=== PATIENT | male | born 1950 | race American Indian/Alaskan Native ===

== ENCOUNTER 2018-02-01 15:40 | Inpatient (IN) | payer MEDICARE ==
[2018-02-02 15:42] VITALS: BMI 27.5
[2018-02-02 16:21] VITALS: RESP 20
[2018-02-02] MEDS: Insulin Lispro (humaLOG) 100 Units/ml Inj SC SCH ×2 (17:33→23:00)
[2018-02-02] MEDS: GlipiZIDE 10 mg SR Tab PO SCH (17:34)
--- NOTE | 2018-02-02 17:34 | CP.PCM.HP ---
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 At time of arrival to the ED the patient was out of the timeframe for tPA. Initial CT of the head was negative and the patient could not undergo an MRI due to his cardiac device incompatibility. A repeat CT of of the head the following day showed an acute left basal ganglia infarct and insular cortex. A TTE with agitated saline was performed that showed no ASD, thrombus and no change in the patient's baseline cardiac status. The patient has right sided sensory and motor deficits and right facial sensory deficit that are residual from the CVA. He was discharged to [facility] Acute rehabilitation today for further therapy and monitoring. Currently the patient denies any new problems and feels well. He denies chest pain, sob, lethargy, n/v/d, fever, chills, recent illness. He is eager to begin rehabilitation. Primary care physician: Jannette King MD Present on Admission - Present on Admission Any Indicators Present on Admission: No Review of Systems - Review of Systems Review of Systems: A 12 point review of systems was conducted and found to be negative other than what was mentioned in the HPI. Past Patient History - Infectious Disease Hx of Infectious Diseases: None - Past Medical History & Family History Past Medical History?: Yes - Past Social History Smoking Status: Never Smoked - CARDIAC Hx Cardiac Disorders: Yes Hx Cardia Arrhythmia: Yes Hx Congestive Heart Failure: Yes Hx Hypertension: Yes Other/Comment: Defibrilator 2013 - PULMONARY Hx Respiratory Disorders: No - NEUROLOGICAL HX Cerebrovascular Accident: Yes - HEENT Hx HEENT Problems: No - RENAL Hx Chronic Kidney Disease: No - ENDOCRINE/METABOLIC Hx Diabetes Mellitus Type 2: Yes - HEMATOLOGICAL/ONCOLOGICAL Hx Blood Transfusions: No - INTEGUMENTARY Hx Dermatological Problems: No - MUSCULOSKELETAL/RHEUMATOLOGICAL Hx Falls: No - GASTROINTESTINAL Hx Gastrointestinal Disorders: Yes Hx Constipation: Yes Hx Hemorrhoids: Yes - GENITOURINARY/GYNECOLOGICAL Hx Genitourinary Disorders: No - PSYCHIATRIC Hx Psychophysiologic Disorder: No Hx Substance Use: No - SURGICAL HISTORY Hx Surgeries: Yes Other/Comment: S/p sigmoid resection 2003, S/p defibrilator 2012 - ANESTHESIA Hx Anesthesia: Yes Hx Anesthesia Reactions: No Hx Malignant Hyperthermia: No Meds Allergies/Adverse Reactions: Allergies Allergy/AdvReac Type Severity Reaction Status Date / Time No Known Allergies Allergy Verified 02/02/18 14:19 Physical Exam - Additional Findings Additional findings: Physical exam: Constitutional- cooperative, awake, alert Head- NCAT, PERRL Eye- PERRL, EOMI ENT- normal exam, MMM. Neck- normal inspection, supple, no JVD Respiratory- CTAB, no wheezes rales rhonchi Cardiovascular- RRR, +S1, +S2 no MRG GI/Abdominal- normal bowel sounds, soft, no mass, no hsm Skin- warm, dry Extremities Exam- normal capillary refill, normal inspection Neurological Exam- Right UE 4/5 muscle strength, Right LE 4/5 muscle strength, Left side upper and lower 5/5 strength. Right hand greep weakened. Speech mildly dysarthric. Patient is alert, awake, oriented Psych- normal mood, normal affect Results - Vital Signs Recent Vital Signs: Last Vital Signs Temp Pulse 78 02/02/18 16:05 Resp 20 02/02/18 16:05 BP Pulse Ox 98 02/02/18 16:05 Assessment & Plan - Assessment and Plan (Free Text) Plan: This is a 67 year old male with pmh of Type II DM, essential hypertension, hyperlipidemia, CAD s/p stent, combined systolic and diastolic CHF with an ejection craction of 26&, arrhythmia s/p AICD placement, cardiomyopathy, history of diverticulitis s/p sigmoidal resection, admitted to [place] acute rehab s/p left basal ganglia CVA with right sided sensory and motor deficits 1) Left basal ganglia CVA - Continue Aspirin for 21 more days - Continue Plavix 75 mg po daily - statin - Begin physical, occupational, and speech therapies at rehab - Physiatry consultation with Dr. Chairez - Neurology consultation with Dr. 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 3) Type II DM - Humalog sliding scale with accuchek - Levemir 10 mg SC q 12 hours - HGA1C 8.4 4) Essential hypertension - Carvedilol 3.125 mg po q 12 hours - Lisinopril 5 mg po daily - HCTZ 25 mg po daily 5) Dyslipidemia Lipitor 40 mg po HS Triglycerides 143 Cholesterol 166 LDL 88 HDL 48 6) DVT prophylaxis - Lovenox 40 mg sc daily
[2018-02-02] MEDS: Insulin Detemir 100 Units/ml Inj SC SCH (21:43)
[2018-02-03 06:39] LABS: HEMOGLOBIN 13.4 g/dL (12.0-18.0); MEAN CELL VOLUME 87.1 fl (80.0-94.0); MEAN CORPUSCULAR HEMOGLOBIN 28.3 pg (27.0-31.0); MEAN CORPUSCULAR HGB CONC 32.5 g/dL (33.0-37.0); RBC 4.72 Mil/uL (4.40-5.90); RED CELL DISTRIBUTION WIDTH 12.8 % (11.5-14.5); WHITE BLOOD COUNT 7.2 K/uL (4.8-10.8)
[2018-02-03 06:53] LABS: BLOOD UREA NITROGEN 24 mg/dl (9-20); CALCIUM 9.8 mg/dL (8.4-10.2); GFR AFRICAN-AMERICAN > 60; GFR NON-AFRICAN AMERICAN > 60
[2018-02-03] MEDS: Insulin Lispro (humaLOG) 100 Units/ml Inj SC SCH ×4 (06:53→23:30)
[2018-02-03] MEDS: GlipiZIDE 10 mg SR Tab PO SCH ×2 (08:20→17:16)
[2018-02-03] MEDS: Enoxaparin 40 mg Syringe SC SCH (08:20)
[2018-02-03] MEDS: Pantoprazole 40 mg EC Tab PO SCH (08:21)
[2018-02-03] MEDS: Insulin Detemir 100 Units/ml Inj SC SCH ×2 (08:21→21:30)
--- NOTE | 2018-02-03 09:26 | CP.PCM.CON ---
History of Present Illness - History of Present Illness History of Present Illness: MR. Jaimes is a 67 y/o male with pmh of Type II DM, essential hypertension, hyperlipidemia, CAD s/p stent, combined systolic and diastolic CHF with an ejection craction of 26&, arrhythmia s/p AICD placement, cardiomyopathy, history of diverticulitis s/p sigmoidal resection, who presented initially to [facility] with acute onset right sided numbness and word finding difficulties. At time of arrival to the ED the patient was out of the timeframe for tPA. Initial CT of the head was negative and the patient could not undergo an MRI due to his cardiac device incompatibility. A repeat CT of of the head the following day showed an acute left basal ganglia infarct and insular cortex. A TTE with agitated saline was performed that showed no ASD, thrombus and no change in the patient's baseline cardiac status. The patient has right sided sensory and motor deficits and right facial sensory deficit that are residual from the CVA. He was discharged to [facility] Acute rehabilitation today for further therapy and monitoring. Currently the patient denies any new problems and feels well. He denies chest pain, sob, lethargy, nausea, vomiting, dizziness, . He is excited to start therapy. Review of Systems - Review of Systems All systems: reviewed and no additional remarkable complaints except Past Patient History - Infectious Disease Hx of Infectious Diseases: None - Past Medical History & Family History Past Medical History?: Yes - Past Social History Smoking Status: Never Smoked - CARDIAC Hx Cardiac Disorders: Yes Hx Cardia Arrhythmia: Yes Hx Congestive Heart Failure: Yes Hx Hypertension: Yes Other/Comment: Defibrilator 2012 - PULMONARY Hx Respiratory Disorders: No - NEUROLOGICAL HX Cerebrovascular Accident: Yes - HEENT Hx HEENT Problems: No - RENAL Hx Chronic Kidney Disease: No - ENDOCRINE/METABOLIC Hx Diabetes Mellitus Type 2: Yes - HEMATOLOGICAL/ONCOLOGICAL Hx Blood Transfusions: No - INTEGUMENTARY Hx Dermatological Problems: No - MUSCULOSKELETAL/RHEUMATOLOGICAL Hx Falls: No - GASTROINTESTINAL Hx Gastrointestinal Disorders: Yes Hx Constipation: Yes Hx Hemorrhoids: Yes - GENITOURINARY/GYNECOLOGICAL Hx Genitourinary Disorders: No - PSYCHIATRIC Hx Psychophysiologic Disorder: No Hx Substance Use: No - SURGICAL HISTORY Hx Surgeries: Yes Other/Comment: S/p sigmoid resection 2003, S/p defibrilator 2012 - ANESTHESIA Hx Anesthesia: Yes Hx Anesthesia Reactions: No Hx Malignant Hyperthermia: No Meds Allergies/Adverse Reactions: Allergies Allergy/AdvReac Type Severity Reaction Status Date / Time No Known Allergies Allergy Verified 02/02/18 14:19 - Medications Medications: Current Medications Aspirin (Aspirin Chewable) 81 mg PO DAILY [facility] Last Admin: 02/03/18 08:19 Dose: 81 mg Atorvastatin Calcium (Lipitor) 40 mg PO HS [facility] Last Admin: 02/02/18 21:42 Dose: 40 mg Carvedilol (Coreg) 3.125 mg PO Q12 [facility] Last Admin: 02/03/18 08:19 Dose: Not Given Clopidogrel Bisulfate (Plavix) 75 mg PO DAILY [facility] Last Admin: 02/03/18 08:21 Dose: 75 mg Enoxaparin Sodium (Lovenox) 40 mg SC DAILY [facility] PRN Reason: Protocol Last Admin: 02/03/18 08:20 Dose: 40 mg Glipizide (Glucotrol Xl) 10 mg PO BID [facility] Last Admin: 02/03/18 08:20 Dose: 10 mg Hydrochlorothiazide (Hydrodiuril) 25 mg PO DAILY [facility] Last Admin: 02/03/18 08:20 Dose: 25 mg Insulin Detemir (Levemir) 10 units SC Q12 [facility] Last Admin: 02/03/18 08:21 Dose: 10 units Insulin Human Lispro (Humalog) 0 units SC ACCU-CHECK [facility] PRN Reason: Protocol Last Admin: 02/03/18 06:53 Dose: Not Given Lisinopril (Zestril) 5 mg PO DAILY [facility] Last Admin: 02/03/18 08:22 Dose: Not Given Pantoprazole Sodium (Protonix Ec Tab) 40 mg PO DAILY [facility] Last Admin: 02/03/18 08:21 Dose: 40 mg Physical Exam - Constitutional Appears: No Acute Distress - Head Exam Head Exam: NORMAL INSPECTION - Eye Exam Eye Exam: EOMI, Normal appearance, PERRL - ENT Exam ENT Exam: Mucous Membranes Moist, Normal Exam - Neck Exam Neck exam: Positive for: Normal Inspection - Respiratory Exam Respiratory Exam: Clear to Auscultation Bilateral, NORMAL BREATHING PATTERN - Cardiovascular Exam Cardiovascular Exam: +S1, +S2 - GI/Abdominal Exam GI & Abdominal Exam: Normal Bowel Sounds, Soft. absent: Tenderness - Rectal Exam Rectal Exam: NORMAL INSPECTION - Extremities Exam Extremities exam: Positive for: normal inspection - Neurological Exam Neurological exam: Alert, CN II-XII Intact, Oriented x3, Reflexes Normal - Expanded Neurological Exam Expanded Patient oriented to: person, place, time Cranial nerves: EOM's Intact: Normal, Facial Sensation: Normal, Gag Reflex: Normal, Tongue Deviation: Normal Ataxia: No Cerebellar Function: Finger to Nose: Normal, Heel to Wallace: Normal, Romberg: Normal Upper motor neuron: Pronator Drift: Normal, Sensory Extinction: Normal Sensory exam: Lower Extremity 2 Point Discrimination: Normal, Lower Extremity Light Touch: Normal, Lower Extremity Pin Prick: Normal, Lower Extremity Temperature: Normal, Upper Extremity 2 Point Discrimination: Normal, Upper Extremity Light Touch: Normal, Upper Extremity Pin Prick: Normal, Upper Extremity Temperature: Normal Neuro motor strength exam: Left Upper Extremity: 5, Right Upper Extremity: 4, Left Lower Extremity: 5, Right Lower Extremity: 4 Results - Vital Signs Recent Vital Signs: Last Vital Signs Temp 98.2 F 02/03/18 08:03 Pulse 73 02/03/18 08:22 Resp 20 02/03/18 08:03 BP 102/61 02/03/18 08:22 Pulse Ox 96 02/03/18 08:03 - Labs Result Diagrams: 02/03/18 06:00 02/03/18 06:00 Labs: Laboratory Results - last 24 hr 02/02/18 02/02/18 02/03/18 16:23 20:44 05:28 WBC RBC Hgb Hct MCV MCH MCHC RDW Plt Count Sodium Potassium Chloride Carbon Dioxide Anion Gap BUN Creatinine Est GFR ( Amer) Est GFR (Non-Af Amer) POC Glucose (mg/dL) 239 H 184 H 138 H Random Glucose Calcium 02/03/18 02/03/18 06:00 06:00 WBC 7.2 RBC 4.72 Hgb 13.4 Hct 41.1 MCV 87.1 MCH 28.3 MCHC 32.5 L RDW 12.8 Plt Count 260 Sodium 142 Potassium 4.4 Chloride 102 Carbon Dioxide 24 Anion Gap 20 BUN 24 H Creatinine 1.2 Est GFR ( Amer) > 60 Est GFR (Non-Af Amer) > 60 POC Glucose (mg/dL) Random Glucose 147 H Calcium 9.8 Assessment & Plan (1) CVA (cerebral vascular accident) Assessment and Plan: This is a 67 year old male with pmh of Type II DM, essential hypertension, hyperlipidemia, CAD s/p stent, combined systolic and diastolic CHF with an ejection fraction of 26%, arrhythmia s/p AICD placement, cardiomyopathy, history of diverticulitis s/p sigmoidal resection, admitted to [facility] acute rehab s/p left basal ganglia CVA with right sided sensory and motor deficits Case discussed with Dr. Ramos, recommend the following 1. PT, OT, ST eval and treat. 2.Recommend blood pressure and glycemic control. 3. Repeat CT scan of the head without contrast if there is a change of mental status. Since MRI is not possible due to his AICD. Status: Acute
--- NOTE | 2018-02-03 11:37 | CP.PCM.CON ---
History of Present Illness - History of Present Illness History of Present Illness: 67 year old black male with diagnosis of Cva, with pmh of Cad, dm and htn admitted for acute rehab Review of Systems - Musculoskeletal Musculoskeletal: Muscle Weakness - Neurological Neurological: Abnormal Gait, Weakness Past Patient History - Infectious Disease Hx of Infectious Diseases: None - Past Medical History & Family History Past Medical History?: Yes - Past Social History Smoking Status: Never Smoked - CARDIAC Hx Cardiac Disorders: Yes Hx Cardia Arrhythmia: Yes Hx Congestive Heart Failure: Yes Hx Hypertension: Yes Other/Comment: Defibrilator 2013 - PULMONARY Hx Respiratory Disorders: No - NEUROLOGICAL HX Cerebrovascular Accident: Yes - HEENT Hx HEENT Problems: No - RENAL Hx Chronic Kidney Disease: No - ENDOCRINE/METABOLIC Hx Diabetes Mellitus Type 2: Yes - HEMATOLOGICAL/ONCOLOGICAL Hx Blood Transfusions: No - INTEGUMENTARY Hx Dermatological Problems: No - MUSCULOSKELETAL/RHEUMATOLOGICAL Hx Falls: No - GASTROINTESTINAL Hx Gastrointestinal Disorders: Yes Hx Constipation: Yes Hx Hemorrhoids: Yes - GENITOURINARY/GYNECOLOGICAL Hx Genitourinary Disorders: No - PSYCHIATRIC Hx Psychophysiologic Disorder: No Hx Substance Use: No - SURGICAL HISTORY Hx Surgeries: Yes Other/Comment: S/p sigmoid resection 2003, S/p defibrilator 2012 - ANESTHESIA Hx Anesthesia: Yes Hx Anesthesia Reactions: No Hx Malignant Hyperthermia: No Meds Allergies/Adverse Reactions: Allergies Allergy/AdvReac Type Severity Reaction Status Date / Time No Known Allergies Allergy Verified 02/02/18 14:19 - Medications Medications: Current Medications Aspirin (Aspirin Chewable) 81 mg PO DAILY [facility] Last Admin: 02/03/18 08:19 Dose: 81 mg Atorvastatin Calcium (Lipitor) 40 mg PO HS [facility] Last Admin: 02/02/18 21:42 Dose: 40 mg Carvedilol (Coreg) 3.125 mg PO Q12 [facility] Last Admin: 02/03/18 08:19 Dose: Not Given Clopidogrel Bisulfate (Plavix) 75 mg PO DAILY [facility] Last Admin: 02/03/18 08:21 Dose: 75 mg Enoxaparin Sodium (Lovenox) 40 mg SC DAILY [facility] PRN Reason: Protocol Last Admin: 02/03/18 08:20 Dose: 40 mg Glipizide (Glucotrol Xl) 10 mg PO BID [facility] Last Admin: 02/03/18 08:20 Dose: 10 mg Hydrochlorothiazide (Hydrodiuril) 25 mg PO DAILY [facility] Last Admin: 02/03/18 08:20 Dose: 25 mg Insulin Detemir (Levemir) 10 units SC Q12 [facility] Last Admin: 02/03/18 08:21 Dose: 10 units Insulin Human Lispro (Humalog) 0 units SC ACCU-CHECK [facility] PRN Reason: Protocol Last Admin: 02/03/18 06:53 Dose: Not Given Lisinopril (Zestril) 5 mg PO DAILY [facility] Last Admin: 02/03/18 08:22 Dose: Not Given Pantoprazole Sodium (Protonix Ec Tab) 40 mg PO DAILY [facility] Last Admin: 02/03/18 08:21 Dose: 40 mg Physical Exam - Head Exam Head Exam: ATRAUMATIC, NORMAL INSPECTION, NORMOCEPHALIC - Eye Exam Eye Exam: EOMI, Normal appearance, PERRL Pupil Exam: NORMAL ACCOMODATION - ENT Exam ENT Exam: Mucous Membranes Moist, Normal Exam - Neck Exam Neck exam: Positive for: Normal Inspection - Respiratory Exam Respiratory Exam: NORMAL BREATHING PATTERN - Cardiovascular Exam Cardiovascular Exam: REGULAR RHYTHM - GI/Abdominal Exam GI & Abdominal Exam: Normal Bowel Sounds - Rectal Exam Rectal Exam: NORMAL INSPECTION - Exam External exam: NORMAL EXTERNAL EXAM - Extremities Exam Extremities exam: Positive for: normal inspection - Back Exam Back exam: NORMAL INSPECTION - Neurological Exam Neurological exam: Alert, CN II-XII Intact, Normal Gait - Psychiatric Exam Psychiatric exam: Normal Affect, Normal Mood - Skin Skin Exam: Dry, Intact Results - Vital Signs Recent Vital Signs: Last Vital Signs Temp 98.2 F 02/03/18 08:03 Pulse 73 02/03/18 08:22 Resp 20 02/03/18 08:03 BP 102/61 02/03/18 08:22 Pulse Ox 96 02/03/18 08:03 - Labs Result Diagrams: 02/03/18 06:00 02/03/18 06:00 Labs: Laboratory Results - last 24 hr 02/02/18 02/02/18 02/03/18 16:23 20:44 05:28 WBC RBC Hgb Hct MCV MCH MCHC RDW Plt Count Sodium Potassium Chloride Carbon Dioxide Anion Gap BUN Creatinine Est GFR ( Amer) Est GFR (Non-Af Amer) POC Glucose (mg/dL) 239 H 184 H 138 H Random Glucose Calcium 02/03/18 02/03/18 06:00 06:00 WBC 7.2 RBC 4.72 Hgb 13.4 Hct 41.1 MCV 87.1 MCH 28.3 MCHC 32.5 L RDW 12.8 Plt Count 260 Sodium 142 Potassium 4.4 Chloride 102 Carbon Dioxide 24 Anion Gap 20 BUN 24 H Creatinine 1.2 Est GFR ( Amer) > 60 Est GFR (Non-Af Amer) > 60 POC Glucose (mg/dL) Random Glucose 147 H Calcium 9.8 Assessment & Plan (1) CVA (cerebral vascular accident) Assessment and Plan: plan for physical, occupational therapy re and speech therapy for range of motion, strenghtenign transfers and gait training to write overall plan of care Status: Acute (2) Diabetes mellitus Status: Chronic
--- NOTE | 2018-02-03 11:39 | PCM.OPOC ---
Physiatry Overall Plan of Care - Overall Plan of Care Estimated Length of Stay in Weeks: 3 Rehab Impairment: Mobility, Gait, Balance, Coordination Etiologic Diagnosis: Cerebrovascular Accident - Anticipated Interventions Physical Therapy:: Yes Occupational Therapy:: Yes Speech Therapy:: Yes Recreational Therapy:: Yes - Therapy Goals Bed Mobility: Independent Ambulation: Supervision Functional Positional Changes:: Independent - Discharge Plan Identification of Barriers to Discharge: Cognition Discharge Destination: Home
--- NOTE | 2018-02-03 11:41 | CP.PCM.PN ---
Subjective - Date & Time of Evaluation Date of Evaluation: 02/03/18 Time of Evaluation: 09:00 - Subjective Subjective: no acute complaints at present Objective - Vital Signs/Intake and Output Vital Signs (last 24 hours): Temp Pulse Resp BP Pulse Ox 98.2 F 73 20 102/61 96 02/03/18 08:03 02/03/18 08:22 02/03/18 08:03 02/03/18 08:22 02/03/18 08:03 - Medications Medications: Current Medications Aspirin (Aspirin Chewable) 81 mg PO DAILY [facility] Last Admin: 02/03/18 08:19 Dose: 81 mg Atorvastatin Calcium (Lipitor) 40 mg PO HS [facility] Last Admin: 02/02/18 21:42 Dose: 40 mg Carvedilol (Coreg) 3.125 mg PO Q12 [facility] Last Admin: 02/03/18 08:19 Dose: Not Given Clopidogrel Bisulfate (Plavix) 75 mg PO DAILY [facility] Last Admin: 02/03/18 08:21 Dose: 75 mg Enoxaparin Sodium (Lovenox) 40 mg SC DAILY [facility] PRN Reason: Protocol Last Admin: 02/03/18 08:20 Dose: 40 mg Glipizide (Glucotrol Xl) 10 mg PO BID [facility] Last Admin: 02/03/18 08:20 Dose: 10 mg Hydrochlorothiazide (Hydrodiuril) 25 mg PO DAILY [facility] Last Admin: 02/03/18 08:20 Dose: 25 mg Insulin Detemir (Levemir) 10 units SC Q12 [facility] Last Admin: 02/03/18 08:21 Dose: 10 units Insulin Human Lispro (Humalog) 0 units SC ACCU-CHECK [facility] PRN Reason: Protocol Last Admin: 02/03/18 06:53 Dose: Not Given Lisinopril (Zestril) 5 mg PO DAILY [facility] Last Admin: 02/03/18 08:22 Dose: Not Given Pantoprazole Sodium (Protonix Ec Tab) 40 mg PO DAILY [facility] Last Admin: 02/03/18 08:21 Dose: 40 mg - Labs Labs: 02/03/18 06:00 02/03/18 06:00 - Head Exam Head Exam: ATRAUMATIC, NORMAL INSPECTION, NORMOCEPHALIC - Eye Exam Eye Exam: EOMI, Normal appearance, PERRL Pupil Exam: NORMAL ACCOMODATION - ENT Exam ENT Exam: Mucous Membranes Moist, Normal Exam - Neck Exam Neck Exam: Normal Inspection - Respiratory Exam Respiratory Exam: NORMAL BREATHING PATTERN - Cardiovascular Exam Cardiovascular Exam: REGULAR RHYTHM - GI/Abdominal Exam GI & Abdominal Exam: Soft - Rectal Exam Rectal Exam: NORMAL INSPECTION - Exam External exam: NORMAL EXTERNAL EXAM - Extremities Exam Extremities Exam: Full ROM, Normal Capillary Refill, Normal Inspection - Back Exam Back Exam: NORMAL INSPECTION - Neurological Exam Neurological Exam: Alert, Awake Neuro motor strength exam: Left Upper Extremity: 4, Right Upper Extremity: 3, Left Lower Extremity: 4, Right Lower Extremity: 3 - Psychiatric Exam Psychiatric exam: Normal Affect, Normal Mood - Skin Skin Exam: Dry, Intact Assessment and Plan (1) CVA (cerebral vascular accident) Assessment & Plan: plan for physical, occupational , rec therapy program and speech eval for acute rehab Status: Acute (2) Diabetes mellitus Status: Chronic
--- NOTE | 2018-02-03 14:48 | CP.PCM.PN ---
Subjective - Date & Time of Evaluation Date of Evaluation: 02/03/18 Time of Evaluation: 13:20 - Subjective Subjective: Patient seen and examined. Denied any complaint aside from being constipated. Objective - Vital Signs/Intake and Output Vital Signs (last 24 hours): Temp Pulse Resp BP Pulse Ox 98.2 F 73 20 102/61 96 02/03/18 08:03 02/03/18 08:22 02/03/18 08:03 02/03/18 08:22 02/03/18 08:03 - Medications Medications: Current Medications Aspirin (Aspirin Chewable) 81 mg PO DAILY [facility] Last Admin: 02/03/18 08:19 Dose: 81 mg Atorvastatin Calcium (Lipitor) 40 mg PO HS [facility] Last Admin: 02/02/18 21:42 Dose: 40 mg Carvedilol (Coreg) 3.125 mg PO Q12 [facility] Last Admin: 02/03/18 08:19 Dose: Not Given Clopidogrel Bisulfate (Plavix) 75 mg PO DAILY [facility] Last Admin: 02/03/18 08:21 Dose: 75 mg Enoxaparin Sodium (Lovenox) 40 mg SC DAILY [facility] PRN Reason: Protocol Last Admin: 02/03/18 08:20 Dose: 40 mg Glipizide (Glucotrol Xl) 10 mg PO BID [facility] Last Admin: 02/03/18 08:20 Dose: 10 mg Hydrochlorothiazide (Hydrodiuril) 25 mg PO DAILY [facility] Last Admin: 02/03/18 08:20 Dose: 25 mg Insulin Detemir (Levemir) 10 units SC Q12 [facility] Last Admin: 02/03/18 08:21 Dose: 10 units Insulin Human Lispro (Humalog) 0 units SC ACCU-CHECK [facility] PRN Reason: Protocol Last Admin: 02/03/18 12:11 Dose: 3 unit Lisinopril (Zestril) 5 mg PO DAILY [facility] Pantoprazole Sodium (Protonix Ec Tab) 40 mg PO DAILY [facility] Last Admin: 02/03/18 08:21 Dose: 40 mg - Labs Labs: 02/03/18 06:00 02/03/18 06:00 - Constitutional Appears: No Acute Distress - Head Exam Head Exam: ATRAUMATIC - Eye Exam Eye Exam: absent: Scleral icterus - ENT Exam ENT Exam: Mucous Membranes Moist - Neck Exam Neck Exam: absent: Meningismus - Respiratory Exam Respiratory Exam: absent: Rales, Rhonchi, Wheezes, Respiratory Distress - Cardiovascular Exam Cardiovascular Exam: REGULAR RHYTHM, +S1, +S2 - GI/Abdominal Exam GI & Abdominal Exam: Soft. absent: Tenderness - Rectal Exam Rectal Exam: Deferred - Neurological Exam Neurological Exam: Alert, Oriented x3 - Psychiatric Exam Psychiatric exam: Normal Affect - Skin Skin Exam: Dry, Intact Assessment and Plan - Assessment and Plan (Free Text) Assessment: 67 yo male with history of DM2, HTN, HLD, CAD and CHF with AICD was brought at [facility] on 01/29/2018 because of difficulty of talking and right sided weakness. Code stroke was called but since onset of symptoms were in excess of 3 hour window TPA was not given. CT scan of the head showed acute infarct on the left basal ganglia and insular cortex. Patient was admitted as acute CVA and managed as such. On 02/02/2018, patient was transferred to [facility] and admitted at Acute Rehab for continuation of PT/OT/ST 1. Left Basal Ganglia CVA continue ASA, Plavix, statin continue PT/OT/ST Dr Gambino on physiatry consult follow up neuro consult with Dr Ramos 2. CHF with combined systolic/diastolic dysfunction with AICD continue Lisinopril and HCTZ 3. DM2 BS relatively controlled continue Levemir 10units SC q 12hrs HgA1C - 8.4 4. HTN BP stable continue Carvedilol, Lisinopril and HCTZ 5. HLD continue Lipitor 40mg PO HS 6. DVT prophylaxis Lovenox 40mg SC daily
[2018-02-04] MEDS: Insulin Lispro (humaLOG) 100 Units/ml Inj SC SCH ×4 (07:15→23:57)
[2018-02-04] MEDS: Enoxaparin 40 mg Syringe SC SCH (08:31)
[2018-02-04] MEDS: GlipiZIDE 10 mg SR Tab PO SCH ×2 (08:32→17:37)
[2018-02-04] MEDS: Pantoprazole 40 mg EC Tab PO SCH (08:34)
[2018-02-04] MEDS: Insulin Detemir 100 Units/ml Inj SC SCH ×2 (08:36→21:27)
[2018-02-05] MEDS: Insulin Lispro (humaLOG) 100 Units/ml Inj SC SCH ×4 (06:32→22:00)
[2018-02-05] MEDS: GlipiZIDE 10 mg SR Tab PO SCH ×2 (09:27→17:31)
[2018-02-05] MEDS: Insulin Detemir 100 Units/ml Inj SC SCH ×2 (09:27→21:23)
[2018-02-05] MEDS: Pantoprazole 40 mg EC Tab PO SCH (09:29)
[2018-02-05] MEDS: Enoxaparin 40 mg Syringe SC SCH (09:29)
--- NOTE | 2018-02-05 17:22 | CP.PCM.PN ---
Subjective - Date & Time of Evaluation Date of Evaluation: 02/04/18 Time of Evaluation: 09:10 - Subjective Subjective: no acute complaints at present Objective - Vital Signs/Intake and Output Vital Signs (last 24 hours): Temp Pulse Resp BP Pulse Ox 98.0 F 85 20 109/65 100 02/05/18 08:55 02/05/18 09:29 02/05/18 08:55 02/05/18 09:29 02/05/18 08:55 - Medications Medications: Current Medications Aspirin (Aspirin Chewable) 81 mg PO DAILY [facility] Last Admin: 02/05/18 09:26 Dose: 81 mg Atorvastatin Calcium (Lipitor) 40 mg PO HS [facility] Last Admin: 02/04/18 21:26 Dose: 40 mg Carvedilol (Coreg) 3.125 mg PO Q12 [facility] Last Admin: 02/05/18 09:26 Dose: 3.125 mg Clopidogrel Bisulfate (Plavix) 75 mg PO DAILY [facility] Last Admin: 02/05/18 09:29 Dose: 75 mg Docusate Sodium (Colace) 100 mg PO BID [facility] Last Admin: 02/05/18 09:26 Dose: 100 mg Enoxaparin Sodium (Lovenox) 40 mg SC DAILY [facility] PRN Reason: Protocol Last Admin: 02/05/18 09:29 Dose: 40 mg Glipizide (Glucotrol Xl) 10 mg PO BID [facility] Last Admin: 02/05/18 09:27 Dose: 10 mg Hydrochlorothiazide (Hydrodiuril) 25 mg PO DAILY [facility] Last Admin: 02/05/18 09:27 Dose: 25 mg Insulin Detemir (Levemir) 10 units SC Q12 [facility] Last Admin: 02/05/18 09:27 Dose: 10 units Insulin Human Lispro (Humalog) 0 units SC ACCU-CHECK [facility] PRN Reason: Protocol Last Admin: 02/05/18 12:29 Dose: 3 unit Lisinopril (Zestril) 5 mg PO DAILY [facility] Last Admin: 02/05/18 09:29 Dose: 5 mg Loratadine (Claritin) 10 mg PO DAILY [facility] Last Admin: 02/05/18 09:26 Dose: 10 mg Pantoprazole Sodium (Protonix Ec Tab) 40 mg PO DAILY [facility] Last Admin: 02/05/18 09:29 Dose: 40 mg - Labs Labs: 02/03/18 06:00 04/06/18 06:00 - Head Exam Head Exam: ATRAUMATIC, NORMAL INSPECTION, NORMOCEPHALIC - Eye Exam Eye Exam: EOMI, Normal appearance Pupil Exam: NORMAL ACCOMODATION, PERRL - ENT Exam ENT Exam: Mucous Membranes Moist, Normal Exam - Neck Exam Neck Exam: Full ROM, Normal Inspection - Respiratory Exam Respiratory Exam: Clear to Ausculation Bilateral, NORMAL BREATHING PATTERN - Cardiovascular Exam Cardiovascular Exam: REGULAR RHYTHM - GI/Abdominal Exam GI & Abdominal Exam: Soft, Normal Bowel Sounds - Rectal Exam Rectal Exam: NORMAL INSPECTION - Exam External exam: NORMAL EXTERNAL EXAM - Extremities Exam Extremities Exam: Full ROM, Normal Capillary Refill, Normal Inspection - Back Exam Back Exam: NORMAL INSPECTION - Neurological Exam Neurological Exam: Alert, Awake Neuro motor strength exam: Left Upper Extremity: 3, Right Upper Extremity: 3, Left Lower Extremity: 3, Right Lower Extremity: 3 - Psychiatric Exam Psychiatric exam: Normal Affect - Skin Skin Exam: Dry, Normal Color Assessment and Plan (1) CVA (cerebral vascular accident) Assessment & Plan: plan for physical, occupational rec and speech therapy for range of motion, strengthening transfers and gait training Status: Acute (2) Diabetes mellitus Status: Chronic
[2018-02-06] MEDS: Insulin Lispro (humaLOG) 100 Units/ml Inj SC SCH ×4 (06:00→23:16)
[2018-02-06 06:39] LABS: HEMOGLOBIN 12.3 g/dL (12.0-18.0); MEAN CORPUSCULAR HGB CONC 32.2 g/dL (33.0-37.0); RBC 4.4 Mil/uL (4.40-5.90); RED CELL DISTRIBUTION WIDTH 12.7 % (11.5-14.5); WHITE BLOOD COUNT 7.5 K/uL (4.8-10.8)
[2018-02-06 07:01] LABS: BLOOD UREA NITROGEN 29 mg/dl (9-20); CALCIUM 9.6 mg/dL (8.4-10.2); GFR AFRICAN-AMERICAN > 60; GFR NON-AFRICAN AMERICAN > 60
[2018-02-06] MEDS: GlipiZIDE 10 mg SR Tab PO SCH ×2 (08:50→17:01)
[2018-02-06] MEDS: Insulin Detemir 100 Units/ml Inj SC SCH ×2 (08:50→21:32)
[2018-02-06] MEDS: Enoxaparin 40 mg Syringe SC SCH (08:52)
[2018-02-06] MEDS: Pantoprazole 40 mg EC Tab PO SCH (08:52)
--- NOTE | 2018-02-06 13:43 | CP.PCM.PN ---
Subjective - Date & Time of Evaluation Date of Evaluation: 02/06/18 Time of Evaluation: 11:00 - Subjective Subjective: Patient was seen and examined during occupational therapy. Tolerating his therapies well. No complaints by patient or by nursing staff. Denies chest pain, sob, n/v/d/f/c. Objective - Vital Signs/Intake and Output Vital Signs (last 24 hours): Temp Pulse Resp BP Pulse Ox 98.2 F 86 20 109/63 98 02/06/18 09:18 02/06/18 09:18 02/06/18 09:18 02/06/18 09:18 02/06/18 09:18 - Medications Medications: Current Medications Aspirin (Aspirin Chewable) 81 mg PO DAILY [facility] Last Admin: 02/06/18 08:49 Dose: 81 mg Atorvastatin Calcium (Lipitor) 40 mg PO HS [facility] Last Admin: 02/05/18 21:23 Dose: 40 mg Carvedilol (Coreg) 3.125 mg PO Q12 [facility] Last Admin: 02/06/18 08:50 Dose: 3.125 mg Clopidogrel Bisulfate (Plavix) 75 mg PO DAILY [facility] Last Admin: 02/06/18 08:52 Dose: 75 mg Docusate Sodium (Colace) 100 mg PO BID [facility] Last Admin: 02/06/18 08:49 Dose: Not Given Glipizide (Glucotrol Xl) 10 mg PO BID [facility] Last Admin: 02/06/18 08:50 Dose: 10 mg Hydrochlorothiazide (Hydrodiuril) 25 mg PO DAILY [facility] Last Admin: 02/06/18 08:50 Dose: 25 mg Insulin Detemir (Levemir) 13 units SC Q12 [facility] Insulin Human Lispro (Humalog) 0 units SC ACCU-CHECK [facility] PRN Reason: Protocol Last Admin: 02/06/18 12:08 Dose: 6 unit Lisinopril (Zestril) 5 mg PO DAILY [facility] Last Admin: 02/06/18 08:52 Dose: 5 mg Loratadine (Claritin) 10 mg PO DAILY [facility] Last Admin: 02/06/18 08:49 Dose: 10 mg Pantoprazole Sodium (Protonix Ec Tab) 40 mg PO DAILY [facility] Last Admin: 02/06/18 08:52 Dose: 40 mg - Labs Labs: 02/06/18 06:15 02/06/18 06:15 - Additional Findings Additional findings: Physical exam: Constitutional- cooperative, awake, alert Head- NCAT, PERRL Eye- PERRL, EOMI ENT- normal exam, MMM. Neck- normal inspection, supple, no JVD Respiratory- CTAB, no wheezes rales rhonchi Cardiovascular- RRR, +S1, +S2 no MRG GI/Abdominal- normal bowel sounds, soft, no mass, no hsm Skin- warm, dry Extremities Exam- normal capillary refill, normal inspection Neurological Exam- alert, awake, oriented Psych- normal mood, normal affect Assessment and Plan - Assessment and Plan (Free Text) Plan: 67 yo male with history of DM2, HTN, HLD, CAD and CHF with AICD was brought at [facility] on 01/29/2018 because of difficulty of talking and right sided weakness. Code stroke was called but since onset of symptoms were in excess of 3 hour window TPA was not given. CT scan of the head showed acute infarct on the left basal ganglia and insular cortex. Patient was admitted as acute CVA and managed as such. On 02/02/2018, patient was transferred to [facility] and admitted at [facility] for continuation of PT/OT/ST 1. Left Basal Ganglia CVA continue ASA, Plavix, statin continue PT/OT/ST Dr Gambino on physiatry consult follow up neuro consult with Dr Ramos 2. CHF with combined systolic/diastolic dysfunction with AICD continue Lisinopril and HCTZ 3. DM2 uncontrolled last 48 hours increased Levemir 13 units sc q 12 hours HgA1C - 8.4 4. HTN BP stable continue Carvedilol, Lisinopril and HCTZ 5. HLD continue Lipitor 40mg PO HS 6. DVT prophylaxis Lovenox 40mg SC daily
[2018-02-07] MEDS: Insulin Lispro (humaLOG) 100 Units/ml Inj SC SCH ×4 (07:34→22:01)
[2018-02-07] MEDS: Enoxaparin 40 mg Syringe SC SCH (08:06)
[2018-02-07] MEDS: Pantoprazole 40 mg EC Tab PO SCH (08:06)
[2018-02-07] MEDS: Insulin Detemir 100 Units/ml Inj SC SCH ×2 (08:08→21:33)
[2018-02-07] MEDS: GlipiZIDE 10 mg SR Tab PO SCH ×2 (08:10→17:05)
--- NOTE | 2018-02-07 13:32 | CP.PCM.PN ---
Subjective - Date & Time of Evaluation Date of Evaluation: 02/07/18 Time of Evaluation: 08:00 - Subjective Subjective: no acute complaints Objective - Vital Signs/Intake and Output Vital Signs (last 24 hours): Temp Pulse Resp BP Pulse Ox 98.6 F 92 H 20 123/58 L 99 02/07/18 08:28 02/07/18 08:28 02/07/18 08:28 02/07/18 08:28 02/07/18 08:28 - Medications Medications: Current Medications Aspirin (Aspirin Chewable) 81 mg PO DAILY [facility] Last Admin: 02/07/18 08:08 Dose: 81 mg Atorvastatin Calcium (Lipitor) 40 mg PO HS [facility] Last Admin: 02/06/18 21:31 Dose: 40 mg Carvedilol (Coreg) 3.125 mg PO Q12 [facility] Last Admin: 02/07/18 08:09 Dose: 3.125 mg Clopidogrel Bisulfate (Plavix) 75 mg PO DAILY [facility] Last Admin: 02/07/18 08:06 Dose: 75 mg Enoxaparin Sodium (Lovenox) 40 mg SC DAILY [facility] PRN Reason: Protocol Last Admin: 02/07/18 08:06 Dose: 40 mg Glipizide (Glucotrol Xl) 10 mg PO BID [facility] Last Admin: 02/07/18 08:10 Dose: 10 mg Hydrochlorothiazide (Hydrodiuril) 25 mg PO DAILY [facility] Last Admin: 02/07/18 08:07 Dose: 25 mg Insulin Detemir (Levemir) 13 units SC Q12 [facility] Last Admin: 02/07/18 08:08 Dose: 13 units Insulin Human Lispro (Humalog) 0 units SC ACCU-CHECK [facility] PRN Reason: Protocol Last Admin: 02/07/18 12:24 Dose: 4 unit Lisinopril (Zestril) 5 mg PO DAILY [facility] Last Admin: 02/07/18 08:07 Dose: 5 mg Loratadine (Claritin) 10 mg PO DAILY [facility] Last Admin: 02/07/18 08:06 Dose: 10 mg Pantoprazole Sodium (Protonix Ec Tab) 40 mg PO DAILY [facility] Last Admin: 02/07/18 08:06 Dose: 40 mg - Labs Labs: 02/06/18 06:15 02/06/18 06:15 - Head Exam Head Exam: ATRAUMATIC, NORMAL INSPECTION, NORMOCEPHALIC - Eye Exam Eye Exam: EOMI, Normal appearance, PERRL Pupil Exam: NORMAL ACCOMODATION - ENT Exam ENT Exam: Mucous Membranes Moist, Normal Exam - Neck Exam Neck Exam: Normal Inspection - Respiratory Exam Respiratory Exam: NORMAL BREATHING PATTERN - Cardiovascular Exam Cardiovascular Exam: REGULAR RHYTHM - GI/Abdominal Exam GI & Abdominal Exam: Soft, Normal Bowel Sounds - Rectal Exam Rectal Exam: NORMAL INSPECTION - Exam External exam: NORMAL EXTERNAL EXAM - Extremities Exam Extremities Exam: Full ROM, Normal Capillary Refill, Normal Inspection - Back Exam Back Exam: NORMAL INSPECTION - Neurological Exam Neurological Exam: Alert Neuro motor strength exam: Left Upper Extremity: 3, Right Upper Extremity: 3, Left Lower Extremity: 3, Right Lower Extremity: 3 - Psychiatric Exam Psychiatric exam: Normal Affect, Normal Mood - Skin Skin Exam: Dry, Intact Assessment and Plan (1) CVA (cerebral vascular accident) Assessment & Plan: plan for physical, occupational, rec and speech therapy Status: Acute (2) Diabetes mellitus Status: Chronic
[2018-02-08] MEDS: Insulin Lispro (humaLOG) 100 Units/ml Inj SC SCH ×4 (07:47→22:02)
[2018-02-08] MEDS: Pantoprazole 40 mg EC Tab PO SCH (08:09)
[2018-02-08] MEDS: Insulin Detemir 100 Units/ml Inj SC SCH ×2 (08:09→21:36)
[2018-02-08] MEDS: GlipiZIDE 10 mg SR Tab PO SCH ×2 (08:10→17:01)
[2018-02-08] MEDS: Enoxaparin 40 mg Syringe SC SCH (08:10)
--- NOTE | 2018-02-08 12:11 | PSY.TMCNF ---
Nursing - Vital Signs Vital Signs (Last 8 hours): Vital Signs 02/08/18 02/08/18 02/08/18 08:09 08:10 08:30 Temperature 98.0 F Pulse Rate 68 96 H Respiratory 20 Rate Blood Pressure 127/77 127/77 127/77 O2 Sat by Pulse 99 Oximetry Pain: 0 - Medications/Other Issues Comment: Pt at moderate nutritional risk. goals: 1. Pt to consume 75-100% of meals. 2. Blood glucoses to be between 70-180 mg/dl(Retirement Goal: HgbA1C to trend downward). Follow-up due on 02/10/2018 - Bladder Management Bladder Pattern: Normal Voiding Method: Toilet - Bowel Management Bowel Pattern: Constipated - Goals/Time Frame Comments: Pt was seen awake and alert sitting in his wheelchair in his room. Pt agreeable to participate in visit. Pt reported that he would like to be called "Ramírez" or "Fito" throughout stay. Pt's Letitia present in room. Pt was able to identify his leisure interests such as watching television, cooking, and walking in park nearby. Pt presented with impaired fluency and speech intelligbility at times and required repetition of responses. Pt participated in group bingo session following visit and was independent with task following setup. Physical Therapy - Bed Mobility Bed Mobility: Supervision, Verbal Cues - Transfers Sit to Stand: Supervision, Verbal Cues - Ambulation Level of Assistance: Supervision, Verbal Cues Assistive Devices: Single point cane - Stair Negotiation Stairs: Level of Assistance: Supervision - Standing Balance Static Stand: Supervision Dynamic Stand: Supervision, Contact Guard Assist - Pain Pain (assessed during therapy session): 0 - Insight/Carryover Insight/Carryover: Good - Patient/Family Education Comment: safety, therapy schedule, mobility, use of call akers, WC, use of seatbelt - Assessment/Plan Assessment: Mr. Jaimes continues to make good progress in therapy. PT working on improving mobility with improved fluidity and improved dynamic balance. Patient is making good progress in therapies. PT continues to recommend skilled therapy to maximize safety and independence with all mobility following CVA prior to home discharge with intermittent supervision. - Goals Timeframe: 7 days Goals: I with bed/mat mobility. mod I with transfers with SPC. mod I with gait with SPC on all surfaces x 500 feet. 1 flight of steps with single rail and SPC with DS - Provider Therapist: Brian License Number: [id number] Occupational Therapy - Arousal/Attention/Orientation Patient Orientation: Person, Place, Time, Appropriate to Age, Appropriate to Situation - ADL/IADL Self Feeding: Set-up Help Grooming: Set-up Help Dressing-Upper Extremity: Supervision, Set-up Help Dressing-Lower Extremity: Supervision, Verbal Cues, Contact Guard Comment: uses 3 in 1 commode - Sitting Balance Static Sitting: Independent without upper extremity support Dynamic Sitting: Reaches across midline, Reaches out of base of support - Transfers Wheelchair to Bed Transfers: Contact Guard Toilet Transfers: Supervision, Contact Guard Comment: uses SPC for transfers/mobility. tub transfer simulation completed with cga using shower chair - Upper Extremity Status Right Upper Extremity Comment: -R hand dominant. 9 hole peg test: R hand: 58 seconds. L hand: 45 seconds. 30 second arm curl test: R UE: 15 reps. L UE 15 reps. R it intern strength 100lbs. L it intern strength 95 lbs. +impaired R hand coordination. +impaired opposition between digits. +diadochokinesia - Pain Pain (assessed during therapy session): 0 - Insight/Carryover Insight/Carryover: Good - Patient/Family Education Comment: safety, therapy schedule, mobility, use of call akers, WC, use of seatbelt - Assessment/Plan Assessment: Mr. Jaimes continues to make good progress in therapy. PT working on improving mobility with improved fluidity and improved dynamic balance. Patient is making good progress in therapies. PT continues to recommend skilled therapy to maximize safety and independence with all mobility following CVA prior to home discharge with intermittent supervision. - Goals Timeframe: 7 days Goals: I with bed/mat mobility. mod I with transfers with SPC. mod I with gait with SPC on all surfaces x 500 feet. 1 flight of steps with single rail and SPC with DS - Provider Therapist: DAREK Peñaloza/[facility] - Consult Information Patient on Program: Yes Medical Diagnosis: CVA Treatment Diagnosis: -mild-moderate expressive language/fluency deficits. - mild cognitive deficits - Assessment Expressive Language Impairment: Moderate Memory Impairment: Mild Speech/Articulation Impairment: Moderate - Plan Assessment: Mr. Jaimes continues to make good progress in therapy. PT working on improving mobility with improved fluidity and improved dynamic balance. Patient is making good progress in therapies. PT continues to recommend skilled therapy to maximize safety and independence with all mobility following CVA prior to home discharge with intermittent supervision. - Provider Therapist: Tawnya Calderon License Number: [id number] Recreational Therapy - Participation Participation: Participates in Individual and/or Group Sessions - Attendance Attendance: 3-5 times per week - Activities Leisure Activities: Cards and Games - Socialization Level of Socialization: Initiates/interacts freely with care givers and peer - Diversional Time Diversional Time: television, reading newspaper - Assessment Assessment/Plan: Mr. Jaimes continues to make good progress in therapy. PT working on improving mobility with improved fluidity and improved dynamic balance. Patient is making good progress in therapies. PT continues to recommend skilled therapy to maximize safety and independence with all mobility following CVA prior to home discharge with intermittent supervision. - Provider Therapist: Dolores Buckley, INTERVENTIONAL CARDIOLOGIST #[id number] Nutrition - Current Diet Current Diet/ Supplement/ Feedings: Moderate consistent CHO heart healthy. Comment: Heart healthy Mod [facility] regular diet - Appetite Percent Meal Consumed: 75-100% - Assessment/Goals/Time Frame Assessment/Goals/Time Frame: Pt at moderate nutritional risk. goals: 1. Pt to consume 75-100% of meals. 2. Blood glucoses to be between 70-180 mg/dl(Construction Materials Tester Goal: HgbA1C to trend downward). Follow-up due on 02/10/2018 - Provider Provider: Zaida Howell RD Case Management - Discharge Plan Discharge Plan: Home with significant other/family Rehabilitation Plan - Treatment Plan Treatment Plan: Speech, Dietary - Recommendation Recommendation: Physical Therapy, Occupational Therapy, Speech, Dietary - Discharge Plan Discharge to: Home (17)
--- NOTE | 2018-02-08 13:25 | CP.PCM.PN ---
Subjective - Date & Time of Evaluation Date of Evaluation: 02/08/18 Time of Evaluation: 09:00 - Subjective Subjective: no acute complaints at present Objective - Vital Signs/Intake and Output Vital Signs (last 24 hours): Temp Pulse Resp BP Pulse Ox 98.0 F 96 H 20 127/77 99 02/08/18 08:30 02/08/18 08:30 02/08/18 08:30 02/08/18 08:30 02/08/18 08:30 - Medications Medications: Current Medications Aspirin (Aspirin Chewable) 81 mg PO DAILY [facility] Last Admin: 02/08/18 08:10 Dose: 81 mg Atorvastatin Calcium (Lipitor) 40 mg PO HS [facility] Last Admin: 02/07/18 21:08 Dose: 40 mg Carvedilol (Coreg) 3.125 mg PO Q12 [facility] Last Admin: 02/08/18 08:09 Dose: 3.125 mg Clopidogrel Bisulfate (Plavix) 75 mg PO DAILY [facility] Last Admin: 02/08/18 08:09 Dose: 75 mg Enoxaparin Sodium (Lovenox) 40 mg SC DAILY [facility] PRN Reason: Protocol Last Admin: 02/08/18 08:10 Dose: 40 mg Glipizide (Glucotrol Xl) 10 mg PO BID [facility] Last Admin: 02/08/18 08:10 Dose: 10 mg Hydrochlorothiazide (Hydrodiuril) 25 mg PO DAILY [facility] Last Admin: 02/08/18 08:10 Dose: 25 mg Insulin Detemir (Levemir) 13 units SC Q12 [facility] Last Admin: 02/08/18 08:09 Dose: 13 units Insulin Human Lispro (Humalog) 0 units SC ACCU-CHECK [facility] PRN Reason: Protocol Last Admin: 02/08/18 12:28 Dose: 6 unit Lisinopril (Zestril) 5 mg PO DAILY [facility] Last Admin: 02/08/18 08:10 Dose: 5 mg Loratadine (Claritin) 10 mg PO DAILY [facility] Last Admin: 02/08/18 08:10 Dose: 10 mg Pantoprazole Sodium (Protonix Ec Tab) 40 mg PO DAILY [facility] Last Admin: 02/08/18 08:09 Dose: 40 mg - Labs Labs: 02/06/18 06:15 02/06/18 06:15 - Head Exam Head Exam: ATRAUMATIC, NORMAL INSPECTION, NORMOCEPHALIC - Eye Exam Eye Exam: EOMI, Normal appearance, PERRL Pupil Exam: NORMAL ACCOMODATION - ENT Exam ENT Exam: Mucous Membranes Moist, Normal Exam - Neck Exam Neck Exam: Normal Inspection - Respiratory Exam Respiratory Exam: Clear to Ausculation Bilateral, NORMAL BREATHING PATTERN - Cardiovascular Exam Cardiovascular Exam: REGULAR RHYTHM - GI/Abdominal Exam GI & Abdominal Exam: Soft, Normal Bowel Sounds - Rectal Exam Rectal Exam: NORMAL INSPECTION - Exam External exam: NORMAL EXTERNAL EXAM - Extremities Exam Extremities Exam: Full ROM, Normal Capillary Refill, Normal Inspection - Back Exam Back Exam: NORMAL INSPECTION - Neurological Exam Neurological Exam: Alert, Awake Neuro motor strength exam: Left Upper Extremity: 3, Right Upper Extremity: 3, Left Lower Extremity: 3, Right Lower Extremity: 3 - Psychiatric Exam Psychiatric exam: Normal Affect, Normal Mood - Skin Skin Exam: Dry, Intact Assessment and Plan (1) CVA (cerebral vascular accident) Assessment & Plan: plan fo rpt, ot rec and speech therapy for dc 02/14 discucussed with family Status: Acute (2) Diabetes mellitus Status: Chronic
--- NOTE | 2018-02-08 15:06 | CP.PCM.PN ---
Subjective - Date & Time of Evaluation Date of Evaluation: 02/08/18 Time of Evaluation: 11:00 - Subjective Subjective: Patient seen and examined at bedside. Reports that he is feeling fine. Tolerating therapies well. Denies cp, sob, n/v/d/f/c. States he is feeling stronger and improving. Objective - Vital Signs/Intake and Output Vital Signs (last 24 hours): Temp Pulse Resp BP Pulse Ox 98.0 F 96 H 20 127/77 99 02/08/18 08:30 02/08/18 08:30 02/08/18 08:30 02/08/18 08:30 02/08/18 08:30 - Medications Medications: Current Medications Aspirin (Aspirin Chewable) 81 mg PO DAILY [facility] Last Admin: 02/08/18 08:10 Dose: 81 mg Atorvastatin Calcium (Lipitor) 40 mg PO HS [facility] Last Admin: 02/07/18 21:08 Dose: 40 mg Carvedilol (Coreg) 3.125 mg PO Q12 [facility] Last Admin: 02/08/18 08:09 Dose: 3.125 mg Clopidogrel Bisulfate (Plavix) 75 mg PO DAILY [facility] Last Admin: 02/08/18 08:09 Dose: 75 mg Enoxaparin Sodium (Lovenox) 40 mg SC DAILY [facility] PRN Reason: Protocol Last Admin: 02/08/18 08:10 Dose: 40 mg Glipizide (Glucotrol Xl) 10 mg PO BID [facility] Last Admin: 02/08/18 08:10 Dose: 10 mg Hydrochlorothiazide (Hydrodiuril) 25 mg PO DAILY [facility] Last Admin: 02/08/18 08:10 Dose: 25 mg Insulin Detemir (Levemir) 13 units SC Q12 [facility] Last Admin: 02/08/18 08:09 Dose: 13 units Insulin Human Lispro (Humalog) 0 units SC ACCU-CHECK [facility] PRN Reason: Protocol Lisinopril (Zestril) 5 mg PO DAILY [facility] Last Admin: 02/08/18 08:10 Dose: 5 mg Loratadine (Claritin) 10 mg PO DAILY [facility] Last Admin: 02/08/18 08:10 Dose: 10 mg Pantoprazole Sodium (Protonix Ec Tab) 40 mg PO DAILY [facility] Last Admin: 02/08/18 08:09 Dose: 40 mg - Labs Labs: 02/06/18 06:15 02/06/18 06:15 - Additional Findings Additional findings: Physical exam: Constitutional- cooperative, awake, alert Head- NCAT, PERRL Eye- PERRL, EOMI ENT- normal exam, MMM. Neck- normal inspection, supple, no JVD Respiratory- CTAB, no wheezes rales rhonchi Cardiovascular- RRR, +S1, +S2 no MRG GI/Abdominal- normal bowel sounds, soft, no mass, no hsm Skin- warm, dry Extremities Exam- normal capillary refill, normal inspection Neurological Exam- alert, awake, oriented Psych- normal mood, normal affect Assessment and Plan - Assessment and Plan (Free Text) Plan: Plan: 67 yo male with history of DM2, HTN, HLD, CAD and CHF with AICD was brought at [facility] on 01/29/2018 because of difficulty of talking and right sided weakness. Code stroke was called but since onset of symptoms were in excess of 3 hour window TPA was not given. CT scan of the head showed acute infarct on the left basal ganglia and insular cortex. Patient was admitted as acute CVA and managed as such. On 02/02/2018, patient was transferred to [facility] and admitted at [facility] for continuation of PT/OT/ST 1. Left Basal Ganglia CVA continue ASA, Plavix, statin continue PT/OT/ST Dr Gambino on physiatry consult follow up neuro consult with Dr Ramos 2. CHF with combined systolic/diastolic dysfunction with AICD continue Lisinopril and HCTZ 3. DM2 uncontrolled last 48 hours increased Levemir 13 units sc q 12 hours HgA1C - 8.4 4. HTN BP stable continue Carvedilol, Lisinopril and HCTZ 5. HLD continue Lipitor 40mg PO HS 6. DVT prophylaxis Lovenox 40mg SC daily
[2018-02-09 06:51] LABS: HEMOGLOBIN 11.7 g/dL (12.0-18.0); MEAN CELL VOLUME 85.7 fl (80.0-94.0); MEAN CORPUSCULAR HEMOGLOBIN 28.3 pg (27.0-31.0); RBC 4.14 Mil/uL (4.40-5.90); RED CELL DISTRIBUTION WIDTH 12.7 % (11.5-14.5); WHITE BLOOD COUNT 6.7 K/uL (4.8-10.8)
[2018-02-09] MEDS: Insulin Lispro (humaLOG) 100 Units/ml Inj SC SCH ×4 (06:57→22:00)
[2018-02-09 07:01] LABS: BLOOD UREA NITROGEN 33 mg/dl (9-20); CALCIUM 9.5 mg/dL (8.4-10.2); GFR AFRICAN-AMERICAN > 60; GFR NON-AFRICAN AMERICAN 55
[2018-02-09] MEDS: Enoxaparin 40 mg Syringe SC SCH (08:19)
[2018-02-09] MEDS: Pantoprazole 40 mg EC Tab PO SCH (08:20)
[2018-02-09] MEDS: GlipiZIDE 10 mg SR Tab PO SCH ×2 (08:20→17:09)
[2018-02-09] MEDS: Insulin Detemir 100 Units/ml Inj SC SCH ×3 (08:21→21:35)
[2018-02-10] MEDS: Insulin Lispro (humaLOG) 100 Units/ml Inj SC SCH ×4 (06:32→23:00)
[2018-02-10] MEDS: Pantoprazole 40 mg EC Tab PO SCH (08:23)
[2018-02-10] MEDS: Enoxaparin 40 mg Syringe SC SCH (08:23)
[2018-02-10] MEDS: Insulin Detemir 100 Units/ml Inj SC SCH ×2 (08:24→21:40)
[2018-02-10] MEDS: GlipiZIDE 10 mg SR Tab PO SCH ×2 (08:26→16:53)
--- NOTE | 2018-02-10 09:48 | CP.PCM.PN ---
Subjective - Date & Time of Evaluation Date of Evaluation: 02/10/18 Time of Evaluation: 13:30 - Subjective Subjective: Patient seen and examined bedside. Feeling well. Participating with PT. Hemodynamically stable, afebrile. No acute issues overnight. Objective - Vital Signs/Intake and Output Vital Signs (last 24 hours): Temp Pulse Resp BP Pulse Ox 98.2 F 92 H 20 120/70 97 02/10/18 08:11 02/10/18 08:26 02/10/18 08:11 02/10/18 08:26 02/10/18 08:11 - Medications Medications: Current Medications Aspirin (Aspirin Chewable) 81 mg PO DAILY [facility] Last Admin: 02/10/18 08:23 Dose: 81 mg Atorvastatin Calcium (Lipitor) 40 mg PO HS [facility] Last Admin: 02/09/18 21:34 Dose: 40 mg Carvedilol (Coreg) 3.125 mg PO Q12 [facility] Last Admin: 02/10/18 08:25 Dose: 3.125 mg Clopidogrel Bisulfate (Plavix) 75 mg PO DAILY [facility] Last Admin: 02/10/18 08:23 Dose: 75 mg Enoxaparin Sodium (Lovenox) 40 mg SC DAILY [facility] PRN Reason: Protocol Last Admin: 02/10/18 08:23 Dose: 40 mg Glipizide (Glucotrol Xl) 10 mg PO BID [facility] Last Admin: 02/10/18 08:26 Dose: 10 mg Hydrochlorothiazide (Hydrodiuril) 25 mg PO DAILY [facility] Last Admin: 02/09/18 08:20 Dose: 25 mg Insulin Detemir (Levemir) 15 units SC Q12 [facility] Last Admin: 02/10/18 08:24 Dose: 15 units Insulin Human Lispro (Humalog) 0 units SC ACCU-CHECK [facility] PRN Reason: Protocol Last Admin: 02/10/18 06:32 Dose: Not Given Lisinopril (Zestril) 5 mg PO DAILY [facility] Last Admin: 02/10/18 08:26 Dose: 5 mg Loratadine (Claritin) 10 mg PO DAILY [facility] Last Admin: 02/10/18 08:25 Dose: 10 mg Pantoprazole Sodium (Protonix Ec Tab) 40 mg PO DAILY [facility] Last Admin: 02/10/18 08:23 Dose: 40 mg - Labs Labs: 02/09/18 05:20 02/09/18 05:20 - Constitutional Appears: Non-toxic, No Acute Distress - Head Exam Head Exam: ATRAUMATIC, NORMAL INSPECTION, NORMOCEPHALIC - Eye Exam Eye Exam: EOMI, Normal appearance, PERRL Pupil Exam: NORMAL ACCOMODATION - ENT Exam ENT Exam: Mucous Membranes Moist, Normal Exam - Neck Exam Neck Exam: Full ROM, Normal Inspection - Respiratory Exam Respiratory Exam: Clear to Ausculation Bilateral, NORMAL BREATHING PATTERN. absent: Rales, Wheezes - Cardiovascular Exam Cardiovascular Exam: REGULAR RHYTHM, RRR, +S1, +S2. absent: JVD - GI/Abdominal Exam GI & Abdominal Exam: Soft, Normal Bowel Sounds. absent: Distended, Guarding, Tenderness, Rebound - Rectal Exam Rectal Exam: Deferred - Extremities Exam Extremities Exam: Full ROM, Normal Capillary Refill, Normal Inspection. absent : Pedal Edema - Back Exam Back Exam: NORMAL INSPECTION - Neurological Exam Neurological Exam: Alert, Awake, CN II-XII Intact, Oriented x3 - Psychiatric Exam Psychiatric exam: Normal Affect - Skin Skin Exam: Dry, Normal Color, Warm Assessment and Plan - Assessment and Plan (Free Text) Assessment: 67 yo male with history of DM2, HTN, HLD, CAD and CHF with AICD was brought at [facility] on 01/29/2018 because of difficulty of talking and right sided weakness. Code stroke was called but since onset of symptoms were in excess of 3 hour window TPA was not given. CT scan of the head showed acute infarct on the left basal ganglia and insular cortex. Patient was admitted as acute CVA and managed as such. On 02/02/2018, patient was transferred to [facility] and admitted at [facility] for continuation of PT/OT/ST At present doing well, participating with PT. 1. Left Basal Ganglia CVA continue ASA, Plavix, statin continue PT/OT/ST Dr Gambino on physiatry consult neuro consult with Dr Ramos on board Plan for d/c on Tuesday 2. CHF with combined systolic/diastolic dysfunction with AICD continue Lisinopril HCTZ on hold 3. DM2 uncontrolled last 48 hours increased Levemir 15 units sc q 12 hours on Glipizide HgA1C - 8.4 4. HTN BP stable continue Carvedilol, Lisinopril HCTZ on hold 5. HLD continue Lipitor 40mg PO HS 6. DVT prophylaxis Lovenox 40mg SC daily
[2018-02-11] MEDS: Insulin Lispro (humaLOG) 100 Units/ml Inj SC SCH ×4 (07:02→22:21)
[2018-02-11] MEDS: Insulin Detemir 100 Units/ml Inj SC SCH ×2 (08:28→21:51)
[2018-02-11] MEDS: Enoxaparin 40 mg Syringe SC SCH (08:28)
[2018-02-11] MEDS: Pantoprazole 40 mg EC Tab PO SCH (08:29)
[2018-02-11] MEDS: GlipiZIDE 10 mg SR Tab PO SCH ×2 (08:30→16:37)
[2018-02-12] MEDS: Insulin Lispro (humaLOG) 100 Units/ml Inj SC SCH ×4 (07:03→22:00)
[2018-02-12] MEDS: Pantoprazole 40 mg EC Tab PO SCH (08:17)
[2018-02-12] MEDS: GlipiZIDE 10 mg SR Tab PO SCH ×2 (08:17→16:30)
[2018-02-12] MEDS: Insulin Detemir 100 Units/ml Inj SC SCH ×2 (08:19→21:07)
[2018-02-12] MEDS: Enoxaparin 40 mg Syringe SC SCH (08:22)
[2018-02-12 09:29] LABS: HEMOGLOBIN 12.1 g/dL (12.0-18.0); MEAN CELL VOLUME 86.1 fl (80.0-94.0); MEAN CORPUSCULAR HEMOGLOBIN 28.6 pg (27.0-31.0); MEAN CORPUSCULAR HGB CONC 33.2 g/dL (33.0-37.0); RBC 4.24 Mil/uL (4.40-5.90); RED CELL DISTRIBUTION WIDTH 12.5 % (11.5-14.5); WHITE BLOOD COUNT 6.3 K/uL (4.8-10.8)
[2018-02-12 09:38] LABS: BLOOD UREA NITROGEN 34 mg/dl (9-20); CALCIUM 10.1 mg/dL (8.4-10.2); GFR AFRICAN-AMERICAN > 60; GFR NON-AFRICAN AMERICAN 55
[2018-02-13] MEDS: Insulin Lispro (humaLOG) 100 Units/ml Inj SC SCH ×4 (06:55→23:00)
[2018-02-13] MEDS: GlipiZIDE 10 mg SR Tab PO SCH ×2 (08:34→17:02)
[2018-02-13] MEDS: Pantoprazole 40 mg EC Tab PO SCH (08:34)
[2018-02-13] MEDS: Enoxaparin 40 mg Syringe SC SCH (08:34)
[2018-02-13] MEDS: Insulin Detemir 100 Units/ml Inj SC SCH ×2 (08:35→21:15)
--- NOTE | 2018-02-13 12:03 | CP.PCM.PN ---
Subjective - Date & Time of Evaluation Date of Evaluation: 02/13/18 Time of Evaluation: 12:03 - Subjective Subjective: Mr. Jaimes was seen and examined during therapy session. He is alert, oriented in all spheres. He denies any headache, dizziness, lightheadedness, blurred vision, diplopia. He is able to follow simple commands. He is excited to go home derek. He ia participating during therapy session. There was no untoward events overnight. Objective - Vital Signs/Intake and Output Vital Signs (last 24 hours): Temp Pulse Resp BP Pulse Ox 97.7 F 94 H 20 115/60 97 02/13/18 08:42 02/13/18 08:42 02/13/18 08:42 02/13/18 08:42 02/13/18 08:42 - Medications Medications: Current Medications Aspirin (Aspirin Chewable) 81 mg PO DAILY [facility] Last Admin: 02/13/18 08:33 Dose: 81 mg Atorvastatin Calcium (Lipitor) 40 mg PO HS [facility] Last Admin: 02/12/18 21:07 Dose: 40 mg Carvedilol (Coreg) 3.125 mg PO Q12 [facility] Last Admin: 02/13/18 08:33 Dose: 3.125 mg Clopidogrel Bisulfate (Plavix) 75 mg PO DAILY [facility] Last Admin: 02/13/18 08:34 Dose: 75 mg Enoxaparin Sodium (Lovenox) 40 mg SC DAILY [facility] PRN Reason: Protocol Last Admin: 02/13/18 08:34 Dose: 40 mg Glipizide (Glucotrol Xl) 10 mg PO BID [facility] Last Admin: 02/13/18 08:34 Dose: 10 mg Hydrochlorothiazide (Hydrodiuril) 25 mg PO DAILY [facility] Last Admin: 02/13/18 08:34 Dose: 25 mg Insulin Detemir (Levemir) 15 units SC Q12 [facility] Last Admin: 02/13/18 08:35 Dose: 15 units Insulin Human Lispro (Humalog) 0 units SC ACCU-CHECK [facility] PRN Reason: Protocol Last Admin: 02/13/18 06:55 Dose: 2 units Lisinopril (Zestril) 5 mg PO DAILY [facility] Last Admin: 02/13/18 08:34 Dose: 5 mg Pantoprazole Sodium (Protonix Ec Tab) 40 mg PO DAILY [facility] Last Admin: 02/13/18 08:34 Dose: 40 mg - Labs Labs: 02/12/18 06:45 02/12/18 06:45 - Constitutional Appears: No Acute Distress - Head Exam Head Exam: NORMAL INSPECTION - Neurological Exam Neurological Exam: Alert, Awake, Oriented x3 Neuro motor strength exam: Left Upper Extremity: 5, Right Upper Extremity: 5, Left Lower Extremity: 5, Right Lower Extremity: 5 Additional comments: Neurological unchanged from previous examination. Assessment and Plan (1) CVA (cerebral vascular accident) Assessment & Plan: Case discussed with Dr. Gallo, continue all current medical, physical, and occupational therapies. Recommend to follow up with an outside neurologist upon discharge, if patient would like to follow up with Dr. Gallo at [address] [place] [address] [address], [facility] [place] [address], tel. [phone]. Status: Acute
[2018-02-13 20:10] VITALS: O2SAT 100
[2018-02-14] MEDS: Insulin Lispro (humaLOG) 100 Units/ml Inj SC SCH ×2 (06:53→12:06)
[2018-02-14] MEDS: GlipiZIDE 10 mg SR Tab PO SCH (08:25)
[2018-02-14] MEDS: Enoxaparin 40 mg Syringe SC SCH (08:25)
[2018-02-14] MEDS: Pantoprazole 40 mg EC Tab PO SCH (08:27)
[2018-02-14] MEDS: Insulin Detemir 100 Units/ml Inj SC SCH (08:28)
[2018-02-14 08:48] VITALS: BP 96/56; PULSE 100; TEMP 98.3
--- NOTE | 2018-02-14 13:09 | CP.PCM.DIS ---
Provider - Provider Date of Admission: 02/02/18 15:42 Attending physician: Jonnathan Cross DO Primary care physician: Jannette King MD Time Spent in preparation of Discharge (in minutes): 30 Hospital Course - Lab Results Lab Results: Most Recent Lab Values WBC 6.3 K/uL (4.8-10.8) 02/12/18 06:45 RBC 4.24 Mil/uL (4.40-5.90) L 02/12/18 06:45 Hgb 12.1 g/dL (12.0-18.0) 02/12/18 06:45 Hct 36.5 % (35.0-51.0) 02/12/18 06:45 MCV 86.1 fl (80.0-94.0) 02/12/18 06:45 MCH 28.6 pg (27.0-31.0) 02/12/18 06:45 MCHC 33.2 g/dL (33.0-37.0) 02/12/18 06:45 RDW 12.5 % (11.5-14.5) 02/12/18 06:45 Plt Count 320 K/uL (130-400) 02/12/18 06:45 Sodium 140 mmol/l (132-148) 02/12/18 06:45 Potassium 4.7 MMOL/L (3.6-5.0) 02/12/18 06:45 Chloride 102 mmol/L (98-107) 02/12/18 06:45 Carbon Dioxide 22 mmol/L (22-30) 02/12/18 06:45 Anion Gap 21 (10-20) H 02/12/18 06:45 BUN 34 mg/dl (9-20) H 02/12/18 06:45 Creatinine 1.3 mg/dl (0.8-1.5) 02/12/18 06:45 Est GFR ( Amer) > 60 02/12/18 06:45 Est GFR (Non-Af Amer) 55 02/12/18 06:45 POC Glucose (mg/dL) 351 mg/dL (65-110) H 02/14/18 11:14 Random Glucose 146 mg/dL (75-110) H 02/12/18 06:45 Calcium 10.1 mg/dL (8.4-10.2) 02/12/18 06:45 - Hospital Course Hospital Course: 67 yo male with history of DM2, HTN, HLD, CAD and CHF with AICD was brought at [facility] on 01/29/2018 because of difficulty of talking and right sided weakness. Code stroke was called but since onset of symptoms were in excess of 3 hour window TPA was not given. CT scan of the head showed acute infarct on the left basal ganglia and insular cortex. Patient was admitted as acute CVA and managed as such. On 02/02/2018, patient was transferred to [facility] and admitted at [facility] for continuation of PT/OT/ST At present doing well, participating with PT. D/c IN ST[facility] CONDITION [facility]. FOLLOW UP WITH PCP AND NEURO IN ONE WEEK. 1. Left Basal Ganglia CVA continue ASA, Plavix, statin continue PT/OT/ST Dr Gambino on physiatry consult neuro consult with Dr Ramos on board Plan for d/c on Tuesday 2. CHF with combined systolic/diastolic dysfunction with AICD continue Lisinopril HCTZ on hold 3. DM2 uncontrolled last 48 hours increased Levemir 15 units sc q 12 hours on Glipizide HgA1C - 8.4 4. HTN BP stable continue Carvedilol, Lisinopril HCTZ on hold 5. HLD continue Lipitor 40mg PO HS 6. DVT prophylaxis Lovenox 40mg SC daily Discharge Exam - Head Exam Head Exam: NORMAL INSPECTION, NORMOCEPHALIC - Eye Exam Eye Exam: EOMI, Normal appearance - ENT Exam ENT Exam: Mucous Membranes Moist, Normal Oropharynx - Respiratory Exam Respiratory Exam: Clear to PA & Lateral, NORMAL BREATHING PATTERN - Cardiovascular Exam Cardiovascular Exam: RRR, +S1, +S2 - GI/Abdominal Exam GI & Abdominal Exam: Normal Bowel Sounds, Soft. absent: Tenderness - Extremities Exam Extremities exam: normal capillary refill, pedal pulses present - Back Exam Back exam: absent: CVA tenderness (L), CVA tenderness (R) - Neurological Exam Neurological exam: Alert, Oriented x3 - Psychiatric Exam Psychiatric exam: Normal Affect, Normal Mood - Skin Skin Exam: Dry, Normal Color Discharge Plan - Follow Up Plan Condition: GOOD Disposition: HOME/ ROUTINE Instructions: Type 2 Diabetes, Coronary Heart Disease, Heart Failure, Adult (DC ), Stroke (DC), Heart Disease in Diabetics (DC), High Cholesterol (DC), Aspirin , Atorvastatin, Carvedilol, Clopidogrel, Glipizide, Hydrochlorothiazide, Lisinopril, Pantoprazole, Going Home on Blood Thinners , Heart Disease in Diabetics Referrals: Jannette Monique MD [Primary Care Provider] -
--- NOTE | 2018-02-15 11:52 | CP.PCM.PN ---
Subjective - Date & Time of Evaluation Date of Evaluation: 02/10/18 Time of Evaluation: 10:00 - Subjective Subjective: no acute complaints Objective - Vital Signs/Intake and Output Vital Signs (last 24 hours): Temp Pulse Resp BP Pulse Ox 98.3 F 100 H 20 96/56 L 100 02/14/18 08:47 02/14/18 08:47 02/14/18 08:47 02/14/18 08:47 02/14/18 08:47 - Labs Labs: 02/12/18 06:45 02/12/18 06:45 - Head Exam Head Exam: ATRAUMATIC, NORMAL INSPECTION, NORMOCEPHALIC - Eye Exam Eye Exam: EOMI, Normal appearance, PERRL Pupil Exam: NORMAL ACCOMODATION - ENT Exam ENT Exam: Mucous Membranes Moist, Normal Exam - Neck Exam Neck Exam: Normal Inspection - Respiratory Exam Respiratory Exam: Clear to Ausculation Bilateral, NORMAL BREATHING PATTERN - Cardiovascular Exam Cardiovascular Exam: REGULAR RHYTHM - GI/Abdominal Exam GI & Abdominal Exam: Soft, Normal Bowel Sounds - Rectal Exam Rectal Exam: NORMAL INSPECTION - Exam External exam: NORMAL EXTERNAL EXAM - Extremities Exam Extremities Exam: Full ROM, Normal Capillary Refill, Normal Inspection - Back Exam Back Exam: NORMAL INSPECTION - Neurological Exam Neurological Exam: Alert, Awake Neuro motor strength exam: Left Upper Extremity: 3, Right Upper Extremity: 3, Left Lower Extremity: 3, Right Lower Extremity: 3 - Psychiatric Exam Psychiatric exam: Normal Affect, Normal Mood - Skin Skin Exam: Dry, Intact Assessment and Plan (1) CVA (cerebral vascular accident) Assessment & Plan: plan fo rpt, ot rec and speech therapy Status: Acute (2) Diabetes mellitus Status: Chronic
--- NOTE | 2018-02-15 11:54 | CP.PCM.PN ---
Subjective - Date & Time of Evaluation Date of Evaluation: 02/13/18 Time of Evaluation: 15:00 - Subjective Subjective: no acute complaints at present Objective - Vital Signs/Intake and Output Vital Signs (last 24 hours): Temp Pulse Resp BP Pulse Ox 98.3 F 100 H 20 96/56 L 100 02/14/18 08:47 02/14/18 08:47 02/14/18 08:47 02/14/18 08:47 02/14/18 08:47 - Labs Labs: 02/12/18 06:45 02/12/18 06:45 - Head Exam Head Exam: ATRAUMATIC, NORMAL INSPECTION, NORMOCEPHALIC - Eye Exam Eye Exam: EOMI, Normal appearance, PERRL Pupil Exam: NORMAL ACCOMODATION - ENT Exam ENT Exam: Mucous Membranes Moist, Normal Exam - Neck Exam Neck Exam: Normal Inspection - Respiratory Exam Respiratory Exam: NORMAL BREATHING PATTERN - Cardiovascular Exam Cardiovascular Exam: REGULAR RHYTHM - GI/Abdominal Exam GI & Abdominal Exam: Soft, Normal Bowel Sounds - Rectal Exam Rectal Exam: NORMAL INSPECTION - Exam External exam: NORMAL EXTERNAL EXAM - Extremities Exam Extremities Exam: Full ROM, Normal Capillary Refill, Normal Inspection - Back Exam Back Exam: NORMAL INSPECTION - Neurological Exam Neurological Exam: Alert, Awake Neuro motor strength exam: Left Upper Extremity: 3, Right Upper Extremity: 3, Left Lower Extremity: 3, Right Lower Extremity: 3 - Psychiatric Exam Psychiatric exam: Normal Affect, Normal Mood - Skin Skin Exam: Dry, Intact Assessment and Plan (1) CVA (cerebral vascular accident) Assessment & Plan: plan for pt ot rec therapy for Dc planning Status: Acute (2) Diabetes mellitus Status: Chronic
--- NOTE | 2018-02-15 11:56 | CP.PCM.PN ---
Subjective - Date & Time of Evaluation Date of Evaluation: 02/14/18 Time of Evaluation: 12:00 - Subjective Subjective: no acute complaints Objective - Vital Signs/Intake and Output Vital Signs (last 24 hours): Temp Pulse Resp BP Pulse Ox 98.3 F 100 H 20 96/56 L 100 02/14/18 08:47 02/14/18 08:47 02/14/18 08:47 02/14/18 08:47 02/14/18 08:47 - Labs Labs: 02/12/18 06:45 02/12/18 06:45 - Head Exam Head Exam: ATRAUMATIC, NORMAL INSPECTION, NORMOCEPHALIC - Eye Exam Eye Exam: EOMI, Normal appearance, PERRL Pupil Exam: NORMAL ACCOMODATION - ENT Exam ENT Exam: Mucous Membranes Moist, Normal Exam - Neck Exam Neck Exam: Normal Inspection - Respiratory Exam Respiratory Exam: NORMAL BREATHING PATTERN - Cardiovascular Exam Cardiovascular Exam: REGULAR RHYTHM - GI/Abdominal Exam GI & Abdominal Exam: Soft, Normal Bowel Sounds - Rectal Exam Rectal Exam: NORMAL INSPECTION - Exam External exam: NORMAL EXTERNAL EXAM - Extremities Exam Extremities Exam: Full ROM, Normal Capillary Refill, Normal Inspection - Back Exam Back Exam: NORMAL INSPECTION - Neurological Exam Neurological Exam: Alert, Awake Neuro motor strength exam: Left Upper Extremity: 3, Right Upper Extremity: 3, Left Lower Extremity: 3, Right Lower Extremity: 3 - Psychiatric Exam Psychiatric exam: Normal Affect, Normal Mood - Skin Skin Exam: Dry, Intact, Normal Color Assessment and Plan (1) CVA (cerebral vascular accident) Assessment & Plan: plan for Dc status post therapy Status: Acute (2) Diabetes mellitus Status: Chronic
== END 2018-02-14 14:45 | disposition home health service (06) | DRG 57 ==
PROVIDERS: ADMIT Internal Medicine; ATTEND Internal Medicine
PROC: F07Z9FZ Gait Training/Functional Ambulation Treatment using Assistive, Adaptive, Supportive or Protective Equipment (ICD-10-PCS; principal; 2018-02-02)
PROC: F08Z4FZ Home Management Treatment using Assistive, Adaptive, Supportive or Protective Equipment (ICD-10-PCS; 2018-02-02)
PROC: F06Z6MZ Communicative/Cognitive Integration Skills Treatment using Augmentative / Alternative Communication Equipment (ICD-10-PCS; 2018-02-02)
PROC: F07L6FZ Therapeutic Exercise Treatment of Musculoskeletal System - Lower Back / Lower Extremity using Assistive, Adaptive, Supportive or Protective Equipment (ICD-10-PCS; 2018-02-03)
PROC: F07J6FZ Therapeutic Exercise Treatment of Musculoskeletal System - Head and Neck using Assistive, Adaptive, Supportive or Protective Equipment (ICD-10-PCS; 2018-02-03)
DX: I69.351 Hemiplegia and hemiparesis following cerebral infarction affecting right dominant side (principal); I50.40 Unspecified combined systolic (congestive) and diastolic (congestive) heart failure; I42.9 Cardiomyopathy, unspecified; I69.322 Dysarthria following cerebral infarction; I69.392 Facial weakness following cerebral infarction; I11.0 Hypertensive heart disease with heart failure; I25.10 Atherosclerotic heart disease of native coronary artery without angina pectoris; I27.20 Pulmonary hypertension, unspecified; E78.5 Hyperlipidemia, unspecified; E11.65 Type 2 diabetes mellitus with hyperglycemia; K59.00 Constipation, unspecified; Z95.810 Presence of automatic (implantable) cardiac defibrillator; Z95.5 Presence of coronary angioplasty implant and graft; Z79.4 Long term (current) use of insulin